=== PATIENT | female | born 1960 | race Caucasian/White ===

== ENCOUNTER 2016-11-27 15:53 | Emergency (ER) | payer MEDICARE ==
[~2016-11-27] VITALS: Ht 167.6 cm; Wt 100.0 kg
[2016-11-27 15:54] VITALS: BP 144/74; PULSE 63; RESP 20; TEMP 98; O2SAT 93
--- NOTE | 2016-11-27 16:33 | PD ---
HPI Chief Complaint: Injury Time Seen by Provider: 16:28 Travel History International Travel<30 days: No Contact w/Intl Traveler<30days: No Traveled to known affect area: No History of Present Illness HPI 56-year-old female presents to the emergency Department with complaint of right ankle pain after tripping over a step and twisting her ankle this morning. She did not fall to the ground. Denies paresthesias, loss of sensation to the affected extremity. Reports decreased range of motion secondary to pain. Denies swelling to the ankle. Pain is to the medial aspect. She has applied an Jacob bandage for compression and support. She is taking ibuprofen for pain. Denies fever, chills, nausea, vomiting. History of COPD, PA, hypertension, diabetes. No other modifying factors or associated signs and symptoms. PFSH Past Medical History Cerebrovascular Accident: Yes Social History Tobacco Use: No Review of Systems Except as stated in HPI: all other systems reviewed are Neg Physical Exam Narrative GENERAL: Well-nourished, well-developed female patient, in no acute distress SKIN: Warm and dry. HEAD: Atraumatic. Normocephalic. EYES: Pupils equal and round. No scleral icterus. No injection or drainage. ENT: Mucosa pink and moist. Airway patent. NECK: Trachea midline. CARDIOVASCULAR: Regular rate. RESPIRATORY: No accessory muscle use. GASTROINTESTINAL: Obese. MUSCULOSKELETAL: Right ankle with point tenderness to the medial malleolar zone on palpation; without obvious deformity; without erythema, edema, ecchymosis; decreased range of motion secondary to pain. Right lower extremity supple and non-tense with 2+ pedal pulse and sensory intact and without erythema or edema. No obvious deformities. No clubbing. No cyanosis. No edema. NEUROLOGICAL: Awake and alert. Oriented 3. No obvious cranial nerve deficits. Motor grossly within normal limits. Normal speech. PSYCHIATRIC: Appropriate mood and affect; insight and judgment normal. Data Data Last Documented VS Vital Signs Date Time Temp Pulse Resp B/P Pulse Ox O2 Delivery O2 Flow Rate FiO2 11/27/16 15:54 98.0 63 20 144/74 93 Room Air Orders Ankle, Complete ([id number]) (11/27/16 16:17) [facility] Medical Decision Making Medical Screen Exam Complete: Yes Emergency Medical Condition: Yes Medical Record Reviewed: Yes Differential Diagnosis Ankle sprain, ankle fracture, ankle injury Narrative Course 56-year-old female with right ankle injury. Right ankle x-ray ordered. 1643: Right ankle x-ray with no acute findings. Velcro ankle splint and Jacob bandage applied for support. Crutches provided for support. Ibuprofen prescribed for home. Patient verbalizes understanding and agreement with treatment plan. Patient is medically cleared and stable for discharge. Discussed reasons to return to the emergency department. Instructed patient to follow up with primary care provider. Patient agrees with treatment plan. The patients vital signs are stable and the patient is stable for outpatient follow- up and treatment. Patient discharged home, stable and in no acute distress. Diagnosis Primary Impression: Right ankle sprain Qualified Code: S93.401A - Sprain of right ankle, unspecified ligament, initial encounter Referrals: Primary Care Physician Patient Instructions: Ankle Sprain (ED), Ankle Sprain Exercises (GEN), Ankle Stirrup Splint (ED), Crutch Instructions (ED), General Instructions Departure Forms: Tests/Procedures, Work Release Enter return to work date: Dec 04, 2016 Additional Instructions: Tylenol or ibuprofen as directed and as needed for pain and inflammation Rest, ice, compress, and elevate extremity to decrease pain and inflammation Ankle Brace for support Crutches for support Avoid aggravating activity; increase activity as tolerated Follow-up with primary care provider Return to the emergency department immediately with worsening symptoms Med/Other Pt SpecificInfo: Prescription(s) given Scripts Ibuprofen 800 Mg Ksd047 Mg PO Q6HR PRN (PAIN) #30 TAB Ref 0 Prov:Jennifer Stern 11/27/16 Disposition: 01 DISCHARGE HOME Condition: Stable Jennifer Stern Nov 27, 2016 16:33
--- NOTE | 2016-11-27 16:41 | RADRPT ---
EXAM DATE/TIME: 11/27/2016 16:40 [facility] COMPARISON: No previous studies available for comparison. INDICATIONS : Twisted right ankle. Pain and swelling. MEDICAL HISTORY : None. SURGICAL HISTORY : None. ENCOUNTER: Initial ACUITY: 1 day PAIN SCORE: 7/10 LOCATION: Right lateral FINDINGS: Three view exam was performed of the right ankle. The bony structures are in normal alignment. No e vidence of fracture, dislocation, or soft tissue swelling. The ankle mortise is intact. There is sp urring and hypertrophic change at the Achilles attachment site at the posterior calcaneus. No radiopa que foreign bodies are seen. Bony mineralization is normal. Venous calcifications are seen in the lo wer leg. CONCLUSION: No acute disease. Dejon Franco MD on November 27, 2016 at 16:39 Board Certified Radiologist. This report was verified electronically.
[2016-11-27] MEDS ORDERED: IBUP800T23 PO (16:44)
== END 2016-11-27 17:54 | disposition home or self-care (01) ==
LOC: NEPB 15:53
DX: S93.401A Sprain of unspecified ligament of right ankle, initial encounter (principal); I10 Essential (primary) hypertension; E11.9 Type 2 diabetes mellitus without complications; Z87.09 Personal history of other diseases of the respiratory system; Z86.79 Personal history of other diseases of the circulatory system; W18.43XA Slipping, tripping and stumbling without falling due to stepping from one level to another, initial encounter
CPT/HCPCS: 73610; 99283; E0113; L1906